=== PATIENT | female | born 1935 | race Caucasian/White ===

== ENCOUNTER 2018-12-25 07:26 | Inpatient (IN) ==
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
[2018-12-25 07:47] LABS: Hemoglobin 13.8 gm/dL (12.5-16.0); Mean Cell Volume 92.5 fl (78-100); Mean Corpuscular Hemoglobin 30.4 pg (27-31); Mean Corpuscular Hgb Conc 32.9 g/dl (32-36); Neutrophil # 1.5 K/mm3 (1.3-6.0); Neutrophil % 53.7 % (42-75.0); Platelet Count 170 K/mm3 (150-450); Red Blood Count 4.54 M/mm3 (4.2-5.4); Red Cell Distribution Width 12.9 % (11.5-14.0); White Blood Count 2.8 K/mm3 (4.0-10.5)
[2018-12-25 08:13] LABS: Albumin * 3.6 gm/dl (3.4-5.0); Anion Gap 13.1 mmol/L (6.8-13.8); BUN/Creatinine Ratio 20.3 (9.0-21.6); Bilirubin, Total 0.3 mg/dL (0.0-1.1); Ca. Corrected For Albumin 9.4 mg/dL (8.4-10.2); Calcium * 9.4 mg/dL (7.9-10.9); Potassium 4.1 mmol/L (3.4-4.6); Total Protein 7.8 gm/dL (6.2-8.2)
[2018-12-25] MEDS ORDERED: MORPHINE SULFATE 4 MG/ML SYRG IV ONE (09:22)
[2018-12-25 09:26] LABS: Urine Bilirubin Negative (NEGATIVE); Urine Ketone 50 mg/dL (NEGATIVE); Urine Nitrite Negative (NEGATIVE); Urine Protein 15 mg/dL (NEGATIVE); Urine Specific Gravity 1.025 SP.GR. (1.005-1.010); Urine Urobilinogen Normal (NORMAL)
[2018-12-25 09:33] LABS: Urine Appearance Clear (CLEAR); Urine Bacteria None Seen; Urine Blood 10 /ul (NEGATIVE); Urine Color Yellow; Urine RBC 0-5 /hpf (0-5); Urine WBC None Seen /hpf (0-5)
[2018-12-25] MEDS ORDERED: MORPHINE SULFATE 4 MG/ML SYRG IV PRN (12:34)
--- NOTE | 2018-12-25 12:44 | HP ---
Chief Complaint - Chief Complaint Date of Service: 12/25/18 Time of Service: 11:05 Chief Complaint: Right hip pain History of Present Illness: 83-year-old female with a past medical history of hypertension, hyperlipidemia, osteoporosis, type 2 diabetes mellitus, cerebrovascular disease, osteoporosis presents status post fall. She was last seen normal around 5 or 6 PM. Her neighbor came to check on her as she usually does at 4:30 in the morning and found her laying on the kitchen floor. The patient did not remember what happened and how she fell. She was brought to the emergency department and found to have a right femoral neck fracture on x-ray. She is being admitted and orthopedics has been consulted. Medical History (Last Reviewed 12/25/18 @ 10:30 by Belén Mayorga RN) Cerebrovascular disease Goiter colloid, toxic, nodular Hyperlipidemia Hypertension Leiomyoma of uterus Migraine Osteoporosis Type II diabetes mellitus Surgical History: Surgical History (Last Reviewed 12/25/18 @ 10:30 by Belén Mayorga RN) H/O repair of rotator cuff Onset Date: Unknown left shoulder History of appendectomy Onset Date: Unknown History of colonoscopy Onset Date: ~06/20/10 History of thyroidectomy Onset Date: Unknown Normal coronary angiogram Onset Date: Unknown Family History: Family History (Last Updated 11/11/18 @ 10:22 by Jeimy Coleman RN) Mother , 92 "old age" No problems noted. Father , 62-unknown No problems noted. Social History: Patient Lives/Resources Home Utilized Preferred Language Persian Do you have any restoration or No cultural preference? Smoking Status Current every day smoker Have you smoked in the past 12 Yes months Smoking packs per day 0.5 Do you dip or chew tobacco No Abuse History No History of abuse Psych History No pertinent hx Alcohol Use none Drug Use none (Last Updated 11/11/18 @ 11:14 by Sruthi Burton DNP) No Social History Section defined Review Of Systems (GEN) - Review of Systems Generalized/Overall Review: Absent: Fever Musculoskeletal: Present: Joint Pain Misc: All systems neg except as marked Immunizations: IMMUNIZATION HX Immunizations Up to Date Yes History of Influenza Vaccine Yes Hx Pneumococcal Vaccination Yes Allergies/Adverse Reactions: Allergies Allergy/AdvReac Type Severity Reaction Status Date / Time Txflgtg-Fpx-Jaf Reductase Allergy Intermediate Verified 12/25/18 07:36 Inhibitor hydrocodone [Hydrocodone] AdvReac Intermediate Verified 12/25/18 07:36 Home Medications: HOME MEDICATIONS Aspirin 81 mg PO DAILY 12/25/18 [Last Taken Unknown] Cholecalciferol (Vitamin D3) [Vitamin D3] 1,000 unit PO DAILY 12/25/18 [Last Taken Unknown] Levothyroxine Sodium [Tirosint] 112 mcg PO DAILY 12/25/18 [Last Taken Unknown] glipiZIDE [Glipizide] 10 mg PO BID 12/25/18 [Last Taken Unknown] metFORMIN HCL [Metformin HCl] 500 mg PO BID 12/25/18 [Last Taken Unknown] traMADol HCL [Tramadol HCl] 50 mg PO QID 12/25/18 [Last Taken Unknown] Exam - Exam Vital Signs: Vital Signs - Last Taken Temp 38 C 12/25/18 10:22 Pulse 110 H 12/25/18 10:59 Resp 18 12/25/18 10:22 BP 121/75 12/25/18 10:22 Pulse Ox 94 12/25/18 10:22 Constitutional: Present: Cooperative, No distress, Lethargic, Elderly ENT Exam: Present: hearing grossly normal Eye Exam: bilateral eye: normal inspection Neck: Present: non-tender. Absent: lymphadenopathy (R), lymphadenopathy (L) Respiratory: Present: lungs clear, normal breath sounds, No wheezing. Absent: crackles, rhonchi Cardiovascular/Chest: Present: normal peripheral pulses, regular rate, rhythm, no edema Peripheral Pulses: dorsalis-pedis (R): 2+, dorsalis-pedis (L): 2+ Abdomen: Present: Normal bowel sounds, soft, nontender Extremity: Present: no pedal edema Skin Exam: Present: normal color, warm/dry Neurologic: Present: other - lethargic. Absent: alert Appearance: Present: appropriate appearance Eye contact: Present: cooperative Diagnostic Studies: Abnormal Lab Results 12/25/18 12/25/18 12/25/18 Range/Units 07:40 07:40 09:17 WBC 2.8 L (4.0-10.5) K/mm3 Immature Gran % (Auto) 1.10 H (0.001-0.429) % Monocytes % 19.1 H (0.0-9) % Lymphocytes # 0.70 L (1.5-3.5) k/mm3 Random Glucose 238 H (70-110) mg/dL Urine Protein 15 H (NEGATIVE) mg/dL Urine Blood 10 H (NEGATIVE) /ul Laboratory Results WBC 2.8 K/mm3 (4.0-10.5) L 12/25/18 07:40 RBC 4.54 M/mm3 (4.2-5.4) 12/25/18 07:40 Hgb 13.8 gm/dL (12.5-16.0) 12/25/18 07:40 Hct 42.0 % (37.0-47.0) 12/25/18 07:40 MCV 92.5 fl (78-100) 12/25/18 07:40 MCH 30.4 pg (27-31) 12/25/18 07:40 MCHC 32.9 g/dl (32-36) 12/25/18 07:40 RDW 12.9 % (11.5-14.0) 12/25/18 07:40 Plt Count 170 K/mm3 (150-450) 12/25/18 07:40 MPV 10.0 fl (8-12.5) 12/25/18 07:40 Immature Gran % (Auto) 1.10 % (0.001-0.429) H 12/25/18 07:40 Immature Gran # (Auto) 0.03 K/mm3 (0.000-0.0310) 12/25/18 07:40 Neutrophils % 53.7 % (42-75.0) 12/25/18 07:40 Lymphocytes % 25.3 % (20-51) 12/25/18 07:40 Monocytes % 19.1 % (0.0-9) H 12/25/18 07:40 Eosinophils % 0.4 % (0.0-3.0) 12/25/18 07:40 Basophils % 0.4 % (0.0-1.0) 12/25/18 07:40 Nucleated RBC % 0.0 k/mm3 (0-1) 12/25/18 07:40 Neutrophils # 1.5 K/mm3 (1.3-6.0) 12/25/18 07:40 Lymphocytes # 0.70 k/mm3 (1.5-3.5) L 12/25/18 07:40 Monocytes # 0.5 k/mm3 (0.0-1.0) 12/25/18 07:40 Eosinophils # 0.0 k/mm3 (0.0-0.7) 12/25/18 07:40 Absolute Basophils 0.0 k/mm3 (0.0-0.1) 12/25/18 07:40 Sodium 134 mmol/L (132-142) 12/25/18 07:40 Plasma Sodium 136 mmol/L (130-142) 12/25/18 07:40 Potassium 4.1 mmol/L (3.4-4.6) 12/25/18 07:40 Chloride 100 mmol/L (97-106) 12/25/18 07:40 Carbon Dioxide 25.0 mmol/L (24-32.6) 12/25/18 07:40 Anion Gap 13.1 mmol/L (6.8-13.8) 12/25/18 07:40 BUN 14 mg/dL (3-23) 12/25/18 07:40 Creatinine 0.69 mg/dL (0.4-1.4) 12/25/18 07:40 Est GFR (Non-Af Amer) 87 mL/min (60-130) D 12/25/18 07:40 BUN/Creatinine Ratio 20.3 (9.0-21.6) 12/25/18 07:40 Random Glucose 238 mg/dL (70-110) H 12/25/18 07:40 Calcium 9.4 mg/dL (7.9-10.9) 12/25/18 07:40 Calcium Adj for Albumin 9.4 mg/dL (8.4-10.2) 12/25/18 07:40 Total Bilirubin 0.3 mg/dL (0.0-1.1) 12/25/18 07:40 AST 23 U/L (0-48) 12/25/18 07:40 ALT 20 U/L (19-67) 12/25/18 07:40 Alkaline Phosphatase 105 U/L (50-170) 12/25/18 07:40 Creatine Kinase 44 U/L (0-259) 12/25/18 07:40 Total Protein 7.8 gm/dL (6.2-8.2) 12/25/18 07:40 Albumin 3.6 gm/dl (3.4-5.0) 12/25/18 07:40 Urine Color Yellow 12/25/18 09:17 Urine Appearance Clear (CLEAR) 12/25/18 09:17 Urine pH 6.0 pH (5.0-7.0) 12/25/18 09:17 Ur Specific [place] 1.025 SP.GR. (1.005-1.010) 12/25/18 09:17 Urine Protein 15 mg/dL (NEGATIVE) H 12/25/18 09:17 Urine Glucose (UA) Negative mg/dL (NEGATIVE) 12/25/18 09:17 Urine Ketones 50 mg/dL (NEGATIVE) 12/25/18 09:17 Urine Blood 10 /ul (NEGATIVE) H 12/25/18 09:17 Urine Nitrate Negative (NEGATIVE) 12/25/18 09:17 Urine Bilirubin Negative mg/dl (NEGATIVE) 12/25/18 09:17 Prot Sulfosalicylic Acd Negative mg/dL (0) 12/25/18 09:17 Urine Urobilinogen Normal EU/dl (NORMAL) 12/25/18 09:17 Ur Leukocyte Esterase Negative /ul (NEGATIVE) 12/25/18 09:17 Urine RBC 0-5 /hpf (0-5) 12/25/18 09:17 Urine WBC None seen /hpf (0-5) 12/25/18 09:17 Ur Epithelial Cells None seen /hpf (0-5) 12/25/18 09:17 Urine Bacteria None seen (NONE) 12/25/18 09:17 Urine Culture Comments No culture indicated 12/25/18 09:17 Assessment/Plan - Narrative Narrative: 83-year-old female with a past medical history of hypertension, hyperlipidemia, osteoporosis, type 2 diabetes mellitus, cerebrovascular disease, osteoporosis presents status post fall. She was brought to the emergency department and found to have a right hip fracture on x-ray. She is being admitted and orthopedics has been consulted. She will go to the operating room tomorrow. - Assessment/Plan (1) Fracture of femoral neck, right, closed Problem: Acute Qualifiers: Encounter type: initial encounter Qualified Code(s): S72.001A - Fracture of unspecified part of neck of right femur, initial encounter for closed fracture (2) Hypertension Problem: Chronic (3) Diabetes Problem: Chronic
[2018-12-25] MEDS: MORPHINE SULFATE 2 MG/ML DISP.SYRIN IV PRN (13:56)
[2018-12-25] MEDS: ACETAMINOPHEN 325 MG TABLET PO PRN (15:27)
--- NOTE | 2018-12-25 17:07 | ANES ---
Anesthesia Pre Procedure Eval Vitals/Labs: Last Vital Signs Temp 38.2 C H 12/25/18 14:43 Pulse 97 12/25/18 16:00 Resp 18 12/25/18 14:43 BP 96/61 12/25/18 14:43 Pulse Ox 89 L 12/25/18 14:43 HOME MEDICATIONS Aspirin 81 mg PO DAILY 12/25/18 [Last Taken Unknown] Cholecalciferol (Vitamin D3) [Vitamin D3] 1,000 unit PO DAILY 12/25/18 [Last Taken Unknown] Levothyroxine Sodium [Tirosint] 112 mcg PO DAILY 12/25/18 [Last Taken Unknown] glipiZIDE [Glipizide] 10 mg PO BID 12/25/18 [Last Taken Unknown] metFORMIN HCL [Metformin HCl] 500 mg PO BID 12/25/18 [Last Taken Unknown] traMADol HCL [Tramadol HCl] 50 mg PO QID 12/25/18 [Last Taken Unknown] Allergies/Adverse Reactions: Allergies Allergy/AdvReac Type Severity Reaction Status Date / Time Vhqekam-Tdg-Cyk Reductase Allergy Intermediate Verified 12/25/18 07:36 Inhibitor hydrocodone [Hydrocodone] AdvReac Intermediate Verified 12/25/18 07:36 - Planned Procedure Planned Procedure: right hip fx Medication List Reviewed:: Yes Allergies Verified: Yes Medical History (Last Reviewed 12/25/18 @ 17:00 by Zackary Anne CRNA) Cerebrovascular disease Goiter colloid, toxic, nodular Hyperlipidemia Hypertension Leiomyoma of uterus Migraine Osteoporosis Type II diabetes mellitus Surgical History (Last Reviewed 12/25/18 @ 17:00 by Zackary Anne CRNA) H/O repair of rotator cuff Onset Date: Unknown left shoulder History of appendectomy Onset Date: Unknown History of colonoscopy Onset Date: ~06/20/10 History of thyroidectomy Onset Date: Unknown Normal coronary angiogram Onset Date: Unknown Family History (Last Updated 11/11/18 @ 10:22 by Jeimy Coleman RN) Mother , 92 "old age" No problems noted. Father , 62-unknown No problems noted. - Family Anesthesia History Family History:: no untoward family reactions to anesthesia, no familial bleeding tendencies, no family history of clotting disorders, no family history of premature - Airway/Neck/Teeth Teeth Condition: none Denture Type: Full upper, Full lower Neck Exam: full range of motion Mallampatti Score: 2 Thyromental (T-M) distance: > 6 cm Mandibulo Hyoid distance: > 3 cm - Respiratory Respiratory Physical: lungs clear, decreased breath sounds Smoking Status: Current every day smoker - one half pack per day Discussed smoking cessation including day of surgery: Yes Sleep Apnea currently treated: No Sleep Apnea by current assessment: No - Cardiovascular Cardiac History: arrhythmia - tachycardia, treated in past, nothing current, TIA Tolerate Activity: Fair Heart Sounds: S1 & S2, Regular - Anesthesia Assessment and Plan ASA Class: PS, III Anesthesia Type Plan: Spinal
[2018-12-25] MEDS ORDERED: NORMAL SALINE 1,000 ML IV PRN (21:23)
[2018-12-26] MEDS: ACETAMINOPHEN 325 MG TABLET PO PRN (02:10)
[2018-12-26 05:49] LABS: Hematocrit 42.7 % (37.0-47.0); Hemoglobin 13.9 gm/dL (12.5-16.0); Mean Corpuscular Hgb Conc 32.6 g/dl (32-36); Mean Platelet Volume 10.2 fl (8-12.5); Neutrophil # 2.2 K/mm3 (1.3-6.0); Neutrophil % 51.5 % (42-75.0); Platelet Count 167 K/mm3 (150-450); Red Blood Count 4.64 M/mm3 (4.2-5.4); White Blood Count 4.3 K/mm3 (4.0-10.5)
[2018-12-26 05:51] LABS: Albumin * 3.2 gm/dl (3.4-5.0); Anion Gap 14.2 mmol/L (6.8-13.8); Bilirubin, Total 0.4 mg/dL (0.0-1.1); Ca. Corrected For Albumin 9.1 mg/dL (8.4-10.2); Calcium * 8.8 mg/dL (7.9-10.9); Carbon Dioxide 24.1 mmol/L (24-32.6); Potassium 3.3 mmol/L (3.4-4.6); Total Protein 7.4 gm/dL (6.2-8.2)
--- NOTE | 2018-12-26 07:46 | CONS ---
[facility] - General Date of Service: 12/26/18 Narrative: Patient reports she has no acute events. She is unsure of how she injured her hip. She states her friend found her, most likely after a fall. Her pain is well controlled. She has been NPO since midnight. Source: patient Exam Limitations: no limitations - History of Present Illness Allergies/Adverse Reactions: Allergies Pskjhop-Kqv-Zgo Reductase Inhibitor Allergy (Intermediate, Verified 12/25/18 07:36) hydrocodone [Hydrocodone] Adverse Reaction (Intermediate, Verified 12/25/18 07:36) makes her dizzy, vomiting and decrease high blood pressure Home Medications: Home Medications Medication Instructions Recorded Last Taken Aspirin 81 mg PO DAILY 12/25/18 Unknown Cholecalciferol (Vitamin D3) 1,000 unit PO DAILY 12/25/18 Unknown [Vitamin D3] Levothyroxine Sodium [Tirosint] 112 mcg PO DAILY 12/25/18 Unknown glipiZIDE [Glipizide] 10 mg PO BID 12/25/18 Unknown metFORMIN HCL [Metformin HCl] 500 mg PO BID 12/25/18 Unknown traMADol HCL [Tramadol HCl] 50 mg PO QID 12/25/18 Unknown Medications - Medications Current Medications: Current Medications Acetaminophen (Tylenol) 650 mg PO Q6H PRN PRN Reason: Mild pain (pain scale 1-3) Stop: 01/24/19 14:44 Last Admin: 12/26/18 02:10 Dose: 650 mg Documented by: Sodium Chloride (Sodium Chloride 0.9%) 1,000 mls @ 75 mls/hr IV .[id number] PRN PRN Reason: HYDRATION Stop: 01/24/19 21:24 Last Admin: 12/26/18 00:03 Dose: 75 mls/hr Documented by: Morphine Sulfate (Morphine Sulfate) 1 mg IV Q4H PRN PRN Reason: Severe Pain (pain scale 7-10) Stop: 01/24/19 12:37 Last Admin: 12/25/18 13:56 Dose: 1 mg Documented by: Physical Examination - Exam Vital Signs: Vital Signs - Last Taken Temp 36.5 C 12/26/18 06:43 Pulse 87 12/26/18 06:43 Resp 24 H 12/26/18 06:43 BP 144/61 12/26/18 06:43 Pulse Ox 91 L 12/26/18 06:43 O2 Oxygen Delivery Method Room Air Constitutional: Present: Alert, Cooperative, No distress Extremity: Present: other - RLE--> mild ttp over right hip, SILT, distal capillary refill brisk, 5/5 PF/DF, no obvious wounds Eye contact: Present: cooperative Thoughts: Present: normal thought pattern - Results and Findings: Lab/Microbiology results last 24 hrs: Abnormal/Pending Laboratory Last 24 HRS 12/26/18 12/26/18 12/25/18 05:17 05:17 09:17 WBC Immature Gran % (Auto) 0.70 H Monocytes % 17.8 H Lymphocytes # 1.30 L Potassium 3.3 L Anion Gap 14.2 H Random Glucose 175 H ALT 18 L Albumin 3.2 L Urine Protein 15 H Urine Blood 10 H 12/25/18 12/25/18 07:40 07:40 WBC 2.8 L Immature Gran % (Auto) 1.10 H Monocytes % 19.1 H Lymphocytes # 0.70 L Potassium Anion Gap Random Glucose 238 H ALT Albumin Urine Protein Urine Blood - Assessments/Findings (1) Fracture of femoral neck, right, closed Problem: Acute Qualifiers: Encounter type: initial encounter Qualified Code(s): S72.001A - Fracture of unspecified part of neck of right femur, initial encounter for closed fracture Plan - Plan Plan: - 83 y/o presented with Right hip femoral neck fracture - Discussed conservative vs. surgical intervention including the risk vs. benefits including but not limited to infections, bleeding, cardiac risk, DVT, implant failure, continued pain, malunion vs. non-union fracture healing. After a detailed discussion she wishes to proceed with surgical intervention. She will stay in the hospital post-operatively for monitoring, pain control, PT/OT. Medicine has seen the patient and states she will proceed to operating room on 12/26/2018.
[2018-12-26] MEDS ORDERED: ceFAZolin SODIUM 1 GM VIAL IV PRN (08:01)
[2018-12-26] MEDS ORDERED: RINGER'S SOLUTION,LACTATED 1,000 ML IV PRN (09:24)
[2018-12-26] MEDS ORDERED: MORPHINE SULFATE 4 MG/ML SYRG IV PRN (09:43)
[2018-12-26] MEDS ORDERED: ONDANSETRON HCL/PF 2 MG/ML VIAL IV PRN (09:43)
[2018-12-26] MEDS ORDERED: MAGNESIUM HYDROXIDE 30 ML UDC PO PRN (09:43)
[2018-12-26] MEDS ORDERED: MAG HYDROX/ALUMINUM HYD/SIMETH 30 ML UDC PO PRN (09:43)
--- NOTE | 2018-12-26 09:57 | ANES ---
Post Anesthesia Discharge - Transfer of Care Transfer of Care handoff given to nurse: Yes - Discharge from PACU Discharge from PACU when meets criteria: Yes - Alert in PACU.
--- NOTE | 2018-12-26 09:57 | OR ---
Operative Report - Dictated Report Narrative: Date: 12/26/2018 Surgeon: Raymon Ley M.D. Hide Puller: Rolando Enrique PA-C provided a set of essential, skilled, educated hands that assisted in positioning, transfer, retraction, manipulation, irrigation, closure of wounds, and placement of dressings all of which could not be provided by the available surgical crew. Preoperative diagnosis: Right nondisplaced femoral neck fracture Postoperative diagnosis: Right nondisplaced femoral neck fracture Operations and procedures: 1. Percutaneous cannulated screw fixation of right nondisplaced femoral neck fracture 2. Intraoperative interpretation of radiographs Anesthesia: Spinal Specimens: None Estimated blood loss: Less than 25 Milliliters Retained implants: [employer] 7.0 mm cannulated, partially threaded screws with associated washers 3 Complications: None Indications for procedure: Sarah is an 83-year-old female community ambulator who lives independently who injured the right leg after a fall from standing height. They were admitted to the hospital after being evaluated in the emergency department. Once the medical provider felt that they were stable for surgical treatment, the risks and benefits alternatives were discussed. The risks of , blood clots, bleeding, infection, nerve/tendon/blood vessel injury, malunion, nonunion, failure of implants, painful implants, arthrosis, and need for additional procedures were discussed. The extremity was marked and consent was obtained on the floor. Procedure: After marking the operative extremity on the floor, the patient was taken to the operating room. A timeout was performed. IV antibiotics consisting of 1 g of Ancef were administered. A spinal anesthetic was induced by anesthesia, and the patient was then placed onto a fracture table with a well-padded perineal post. The non-operative leg was placed in a well-padded well leg gastelum in lithotomy position with an SCD on the leg. The operative leg was placed in a well-padded traction boot. Preliminary images were attained utilizing C-arm in both the AP and lateral views. This confirmed that we had obtained adequate visualization of the fracture and entirety of the proximal femur. Next the hip was then prepped and draped in a standard sterile fashion. Attention was turned to the lateral aspect of the proximal femur. The C-arm was used to identify our starting points for our guide pins. A small approximately 4 cm longitudinal incision was made over the lateral aspect of the femur. We then placed 3 terminally threaded guide pins in an inverted triangle configuration hugging the inner cortex of the femoral neck. C-arm was used to confirm appropriate position and depth of our pins. These were all measured to determine our screw lengths. A cannulated drill bit was then used to sequentially drill over each pin across the nondisplaced fracture side of the femoral neck. Three 7.0 mm partially threaded cannulated screws of appropriate lengths with washers were then advanced over our guide pins providing good compression across the fracture site. C-arm was used to confirm appropriate length of our screws to ensure no penetration into the joint. At this point, we felt we had adequately stabilized the fracture. The wound was thoroughly ir rigated. Final images were obtained. The deep fascia was closed with 0 Vicryl, the subcutaneous tissue with 3-0 Vicryl, and the skin was closed with dustin. Sterile dressings of Xeroform, 4 x 4s, and tegaderm were applied. All sponge, sharp, and instrument counts were correct prior to closing the wounds. The patient was then awoken and transferred to the postanesthesia care unit in stable condition.
--- NOTE | 2018-12-26 10:25 | ANES ---
Post Anesthesia Assessment - Vital Signs Vitals: Last Vital Signs Temp 36.4 C 12/26/18 09:45 Pulse 84 12/26/18 10:10 Resp 19 12/26/18 10:10 BP 83/45 L 12/26/18 10:10 Pulse Ox 93 12/26/18 10:10 Airway Patency: Normal - Mental Status Level Of Consciousness: Awake, Alert, Appropriate - Pain Level Pain Score: 0 - no surgical pain, right shoulder pain. - N/V Assessment Nausea/Vomiting Presence: None Dehydration:: No
[2018-12-26] MEDS: NORMAL SALINE 1,000 ML IV PRN (10:56)
[2018-12-26] MEDS: metFORMIN HCL 500 MG TABLET PO SCH ×2 (10:56→17:23)
[2018-12-26] MEDS: CHOLECALCIFEROL 1,000 UNIT CAPSULE PO SCH (10:56)
[2018-12-26] MEDS: glipiZIDE 10 MG TABLET PO SCH ×2 (10:56→17:23)
[2018-12-26] MEDS: LEVOTHYROXINE SODIUM 112 MCG TABLET PO SCH (10:57)
[2018-12-26] MEDS: oxyCODONE HCL/ACETAMINOPHEN 1 TAB TABLET PO PRN ×3 (13:31→22:11)
[2018-12-26] MEDS: ceFAZolin SODIUM 1 GM in DEXTROSE 5 % IN WATER 50 ML IV SCH ×4 (14:54→22:12)
--- NOTE | 2018-12-26 20:14 | PN ---
Subjective - Date and Time Seen Date: 12/26/18 Time: 11:00 Subjective Narrative: She feels good and complains of right shoulder pain. Rated 8 out of 10. She had a CT scan done per Orth O to rule out fracture. Objective - Review of Systems Generalized/Overall Review: Denies: Fever Respiratory: Denies: Shortness of Breath Cardiac: Denies: Chest Pain Musculoskeletal Complaints: Reports: Joint Pain - Right shoulder and right hip Misc: All systems neg except as marked - Vitals Vitals: Last Vital Signs Temp 36.8 C 12/26/18 10:38 Pulse 87 12/26/18 16:42 Resp 18 12/26/18 16:42 BP 83/63 L 12/26/18 16:42 Pulse Ox 90 L 12/26/18 16:42 - Abnormal Lab Findings Abnormal Lab Findings: Abnormal Lab Results 12/26/18 12/26/18 Range/Units 05:17 05:17 Immature Gran % (Auto) 0.70 H (0.001-0.429) % Monocytes % 17.8 H (0.0-9) % Lymphocytes # 1.30 L (1.5-3.5) k/mm3 Potassium 3.3 L (3.4-4.6) mmol/L Anion Gap 14.2 H (6.8-13.8) mmol/L Random Glucose 175 H (70-110) mg/dL ALT 18 L (19-67) U/L Albumin 3.2 L (3.4-5.0) gm/dl - Exam Constitutional: Present: Alert, Cooperative, Well developed, Well nourished, No distress, Elderly ENT Exam: Present: hearing grossly normal Neck: Present: supple. Absent: lymphadenopathy (R), lymphadenopathy (L) Respiratory: Present: lungs clear, no respiratory distress, No wheezing. Absent: crackles, rhonchi Cardiovascular/Chest: Present: normal peripheral pulses, regular rate, rhythm, no murmur Abdomen: Present: Normal bowel sounds, soft, nontender Extremity: Present: no pedal edema Skin Exam: Present: normal color, warm/dry Appearance: Present: appropriate appearance Eye contact: Present: cooperative Thoughts: Present: normal mood /affect Cauti Physician Documentation - Urinary Catheter Management Urethral (Garcia) Date of Insertion: 12/25/18 Time of Insertion: 09:20 Assessment/Plan Plan Narrative: 83-year-old female with a past medical history of hypertension, hyperlipidemia, osteoporosis, type 2 diabetes mellitus, cerebrovascular disease, osteoporosis presents status post fall. She was last seen normal around 5 or 6 PM. Her neighbor came to check on her as she usually does at 4:30 in the morning and found her laying on the kitchen floor. The patient did not remember what happened and how she fell. She was brought to the emergency department and found to have a right femoral neck fracture on x-ray. She is being admitted and orthopedics has been consulted. - Problems/Diagnosis (1) Fracture of femoral neck, right, closed Problem: Acute Qualifiers: Encounter type: initial encounter Qualified Code(s): S72.001A - Fracture of unspecified part of neck of right femur, initial encounter for closed fracture Narrative: Status post percutaneous screw fixation today. Continue pain management and physical therapy. She will need skilled rehab on discharge. (2) Hypertension Problem: Chronic Qualifiers: Hypertension type: essential hypertension Qualified Code(s): I10 - Essential (primary) hypertension (3) Diabetes Problem: Chronic
[2018-12-26] MEDS: SENNOSIDES/DOCUSATE SODIUM 1 TAB TABLET PO SCH (22:10)
[2018-12-26] MEDS: NICOTINE 21 MG PATC TD SCH (22:11)
[2018-12-27 05:48] LABS: Hematocrit 37.5 % (37.0-47.0); Hemoglobin 12.5 gm/dL (12.5-16.0); Mean Cell Volume 90.6 fl (78-100); Mean Corpuscular Hemoglobin 30.2 pg (27-31); Mean Corpuscular Hgb Conc 33.3 g/dl (32-36); Mean Platelet Volume 10.3 fl (8-12.5); Platelet Count 150 K/mm3 (150-450); Red Blood Count 4.14 M/mm3 (4.2-5.4); Red Cell Distribution Width 12.8 % (11.5-14.0); White Blood Count 4.7 K/mm3 (4.0-10.5)
[2018-12-27 05:49] LABS: Anion Gap 14.4 mmol/L (6.8-13.8); BUN/Creatinine Ratio 12.9 (9.0-21.6); Calcium * 8.6 mg/dL (7.9-10.9); Estimated Creat Clear 63.9; Potassium 3.4 mmol/L (3.4-4.6)
[2018-12-27] MEDS: oxyCODONE HCL/ACETAMINOPHEN 1 TAB TABLET PO PRN ×4 (05:56→20:36)
[2018-12-27] MEDS: ceFAZolin SODIUM 1 GM in DEXTROSE 5 % IN WATER 50 ML IV SCH ×2 (07:45)
[2018-12-27] MEDS: LEVOTHYROXINE SODIUM 112 MCG TABLET PO SCH (08:01)
[2018-12-27] MEDS: MORPHINE SULFATE 2 MG/ML DISP.SYRIN IV PRN (08:27)
[2018-12-27] MEDS: ENOXAPARIN SODIUM 40 MG/0.4 ML SYRG SC SCH (08:28)
[2018-12-27] MEDS: metFORMIN HCL 500 MG TABLET PO SCH ×2 (08:29→16:40)
[2018-12-27] MEDS: CHOLECALCIFEROL 1,000 UNIT CAPSULE PO SCH (08:29)
[2018-12-27] MEDS: glipiZIDE 10 MG TABLET PO SCH ×2 (08:29→16:39)
--- NOTE | 2018-12-27 11:11 | PN ---
Subjective - Date and Time Seen Date: 12/27/18 Time: 07:45 Subjective Narrative: Patient reports no acute events. She notes she has not been up out of bed yet. She reports no acute symptoms currently. She notes her pain is well controlled she rates it at a 23/10. Objective - Vitals Vitals: Last Vital Signs Temp 36.4 C 12/27/18 10:00 Pulse 71 12/27/18 10:59 Resp 20 12/27/18 10:00 BP 133/59 12/27/18 06:00 Pulse Ox 96 12/27/18 10:00 - Abnormal Lab Findings Abnormal Lab Findings: Abnormal Lab Results 12/27/18 12/27/18 Range/Units 05:10 05:10 RBC 4.14 L (4.2-5.4) M/mm3 Sodium 131 L (132-142) mmol/L Carbon Dioxide 22.0 L (24-32.6) mmol/L Anion Gap 14.4 H (6.8-13.8) mmol/L Random Glucose 210 H (70-110) mg/dL - Exam Constitutional: Present: Alert, Cooperative, No distress Extremity: Present: other - RLE--> bandages clean/dry/intact, sensation intact light touch, distal capillary refill brisk, diffuse mild tenderness around her right hip, 5/5 plantar flexion dorsiflexion of her right ankle Eye contact: Present: cooperative Thoughts: Present: normal thought pattern Cauti Physician Documentation - Urinary Catheter Management Urethral (Garcia) Date of Insertion: 12/25/18 Time of Insertion: 09:20 Assessment/Plan Plan Narrative: - 83 y/o female postop day 1 status post right hip pinning of a nondisplaced femoral neck fracture -Weightbearing as tolerated with assistance as needed -P.o. diet as tolerated -PT/OT progress as tolerated -P.o. pain medication as needed -Maintain surgical dressings in place -Chronic medical conditions per medicine team -VTE prophylaxis: Lovenox, SCDs in bed, MIRIAM cruz -Disposition: Once all PT goals are met, pain is well controlled, p.o. diuretic tolerated, patient is stable per medicine discharge to either long term facility versus home for further physical therapy and gait training - Problems/Diagnosis (1) Fracture of femoral neck, right, closed Problem: Acute Qualifiers: Encounter type: initial encounter Qualified Code(s): S72.001A - Fracture of unspecified part of neck of right femur, initial encounter for closed fracture
--- NOTE | 2018-12-27 12:39 | PN ---
Subjective - Date and Time Seen Date: 12/27/18 Time: 10:00 Subjective Narrative: She states she feels well but continues to complain of right shoulder and right hip pain. Right shoulder pain is worse than the hip. Right shoulder hurts more with movement. Objective - Review of Systems Generalized/Overall Review: Denies: Fever Respiratory: Denies: Shortness of Breath Cardiac: Denies: Chest Pain Musculoskeletal Complaints: Reports: Joint Pain - Right shoulder and right hip Misc: All systems neg except as marked - Vitals Vitals: Last Vital Signs Temp 36.4 C 12/27/18 10:00 Pulse 71 12/27/18 10:59 Resp 20 12/27/18 10:00 BP 91/52 12/27/18 10:00 Pulse Ox 96 12/27/18 10:00 - Abnormal Lab Findings Abnormal Lab Findings: Abnormal Lab Results 12/27/18 12/27/18 Range/Units 05:10 05:10 RBC 4.14 L (4.2-5.4) M/mm3 Sodium 131 L (132-142) mmol/L Carbon Dioxide 22.0 L (24-32.6) mmol/L Anion Gap 14.4 H (6.8-13.8) mmol/L Random Glucose 210 H (70-110) mg/dL - Exam Constitutional: Present: Alert, Cooperative, Well developed, Well nourished, No distress ENT Exam: Present: hearing grossly normal, dry mucous membranes Neck: Present: supple. Absent: lymphadenopathy (R), lymphadenopathy (L) Respiratory: Present: lungs clear, normal breath sounds, no respiratory distress, no accessory muscle use, No wheezing. Absent: crackles, rhonchi Cardiovascular/Chest: Present: normal peripheral pulses, regular rate, rhythm, no edema, no murmur Abdomen: Present: Normal bowel sounds, soft, nontender Extremity: Present: no pedal edema Skin Exam: Present: normal color, warm/dry Neurologic: Present: normal mood/affect Appearance: Present: appropriate appearance Eye contact: Present: cooperative, good eye contact Thoughts: Present: normal thought pattern, normal mood /affect Cauti Physician Documentation - Urinary Catheter Management Urethral (Garcia) Date of Insertion: 12/25/18 Time of Insertion: 09:20 Date of Removal: 12/27/18 Time of Removal: 06:00 Assessment/Plan Plan Narrative: 83-year-old female with a past medical history of hypertension, hyperlipidemia, osteoporosis, type 2 diabetes mellitus, cerebrovascular disease, osteoporosis presents status post fall. She was brought to the emergency department and found to have a right femoral neck fracture on x-ray. She underwent a operative percutaneous screw fixation on December 26, [address] Ley. She will need skilled rehab on discharge because she lives alone. - Problems/Diagnosis (1) Fracture of femoral neck, right, closed Problem: Acute Qualifiers: Encounter type: initial encounter Qualified Code(s): S72.001A - Fracture of unspecified part of neck of right femur, initial encounter for closed fracture (2) Hypertension Problem: Chronic Qualifiers: Hypertension type: essential hypertension Qualified Code(s): I10 - Essential (primary) hypertension (3) Diabetes Problem: Chronic (4) Right shoulder pain Problem: Acute Qualifiers: Chronicity: acute Qualified Code(s): M25.511 - Pain in right shoulder Narrative: CT scan of the right shoulder showed no signs of fracture, 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 Continue with pain management and we can place a sling on the arm.
[2018-12-27] MEDS: NICOTINE 21 MG PATC TD SCH (14:12)
[2018-12-27] MEDS: NORMAL SALINE 1,000 ML IV PRN (14:30)
[2018-12-27] MEDS ORDERED: NORMAL SALINE 1,000 ML IV ONE (19:20)
[2018-12-27] MEDS: SENNOSIDES/DOCUSATE SODIUM 1 TAB TABLET PO SCH (20:40)
[2018-12-28] MEDS: oxyCODONE HCL/ACETAMINOPHEN 1 TAB TABLET PO PRN ×2 (01:52→06:02)
[2018-12-28 05:54] LABS: Hematocrit 34.7 % (37.0-47.0); Hemoglobin 11.4 gm/dL (12.5-16.0); Mean Cell Volume 91.1 fl (78-100); Mean Corpuscular Hemoglobin 29.9 pg (27-31); Mean Corpuscular Hgb Conc 32.9 g/dl (32-36); Mean Platelet Volume 10.2 fl (8-12.5); Neutrophil # 3.7 K/mm3 (1.3-6.0); Neutrophil % 64.4 % (42-75.0); Platelet Count 145 K/mm3 (150-450); Red Blood Count 3.81 M/mm3 (4.2-5.4); White Blood Count 5.8 K/mm3 (4.0-10.5)
[2018-12-28 06:20] LABS: Albumin * 2.3 gm/dl (3.4-5.0); Anion Gap 13.1 mmol/L (6.8-13.8); BUN/Creatinine Ratio 15.3 (9.0-21.6); Bilirubin, Total 0.3 mg/dL (0.0-1.1); Potassium 3.1 mmol/L (3.4-4.6); Total Protein 6.5 gm/dL (6.2-8.2)
[2018-12-28] MEDS: LEVOTHYROXINE SODIUM 112 MCG TABLET PO SCH (06:58)
[2018-12-28] MEDS: ENOXAPARIN SODIUM 40 MG/0.4 ML SYRG SC SCH (09:09)
[2018-12-28] MEDS: CHOLECALCIFEROL 1,000 UNIT CAPSULE PO SCH (09:09)
[2018-12-28] MEDS: glipiZIDE 10 MG TABLET PO SCH ×2 (09:09→16:51)
[2018-12-28] MEDS: metFORMIN HCL 500 MG TABLET PO SCH ×2 (09:09→16:51)
[2018-12-28] MEDS ORDERED: NORMAL SALINE 500 ML IV ONE (09:17)
[2018-12-28] MEDS: ACETAMINOPHEN 325 MG TABLET PO PRN ×2 (11:22→20:40)
[2018-12-28] MEDS ORDERED: POTASSIUM CHLORIDE 20 MEQ TABLET.SA PO ONE (12:26)
--- NOTE | 2018-12-28 12:43 | PN ---
Subjective - Date and Time Seen Date: 12/28/18 Time: 12:36 Subjective Narrative: I have mild hip pain. Objective Objective Narrative: 83-year-old female on postop day 2 after a ORIF of a right femoral neck fracture was evaluated at bedside and was found to be afebrile and in no acute distress. Patient is currently receiving physical therapy per ortho's recommendations, no adverse events have been reported. Patient reports mild pain and for that she was administered acetaminophen as well as ice pack applied to the area. Patient has been hypotensive since last night so she is being treated with IV hydration, after the last bolus blood pressure has improved we will continue to monitor closely. Patient is programmed to be discharged to rehab facility next week, until then we will continue the current management. - Review of Systems Generalized/Overall Review: Reports: No Symptoms Reported EENTM: Reports: No Symptoms Reported Respiratory: Reports: No Symptoms Reported Cardiac: Reports: No Symptoms Reported Abdominal: Reports: No Symptoms Reported Genitourinary Symptoms: Reports: No Symptoms Reported Musculoskeletal Complaints: Reports: Joint Pain, Joint Swelling Neurological: Reports: No Symptoms Reported Skin: Reports: No Symptoms Reported Endocrine: Reports: No Symptoms Reported - Vitals Vitals: Last Vital Signs Temp 36.8 C 12/28/18 09:00 Pulse 89 12/28/18 09:00 Resp 20 12/28/18 09:00 BP 87/53 L 12/28/18 11:31 Pulse Ox 93 12/28/18 09:00 - Abnormal Lab Findings Abnormal Lab Findings: Abnormal Lab Results 12/28/18 12/28/18 Range/Units 05:40 05:40 RBC 3.81 L (4.2-5.4) M/mm3 Hgb 11.4 L (12.5-16.0) gm/dL Hct 34.7 L (37.0-47.0) % Plt Count 145 L (150-450) K/mm3 Immature Gran % (Auto) 0.50 H (0.001-0.429) % Monocytes % 13.0 H (0.0-9) % Lymphocytes # 1.26 L (1.5-3.5) k/mm3 Potassium 3.1 L (3.4-4.6) mmol/L Random Glucose 179 H (70-110) mg/dL ALT 14 L (19-67) U/L Albumin 2.3 L (3.4-5.0) gm/dl - Exam Constitutional: Present: Alert, Oriented x3, Cooperative, Well developed, Well nourished, No distress, Elderly ENT Exam: Present: normal ENT inspection, hearing grossly normal, pharynx normal, TMs normal Neck: Present: non-tender, full range of motion, supple, normal inspection, trachea midline Breasts: Present: Exam deferred Respiratory: Present: chest non-tender, lungs clear, normal breath sounds, no respiratory distress, no accessory muscle use Cardiovascular/Chest: Present: normal peripheral pulses, regular rate, rhythm, no chest tenderness, no edema, no gallop, no JVD, no murmur Abdomen: Present: Normal bowel sounds, soft, nontender, nondistended, no rebound tenderness, no hepatospenomegaly, no masses /Rectal: Present: Exam deferred Extremity: Present: no pedal edema, no calf tenderness, normal capillary refill, leg pain, other - Right hip covered by dry clean bandage. Skin Exam: Present: normal color, warm/dry, no cyanosis Lymphatic: Present: no adenopathy Neurologic: Present: document management consultant II-XII nml as tested, normal cerebellar test, no motor/sensory deficits, alert, normal mood/affect, oriented x 3 Appearance: Present: appropriate appearance, appropriate insight, neat, no memory impairment Eye contact: Present: cooperative, good eye contact, normal speech Thoughts: Present: normal thought pattern Cauti Physician Documentation - Urinary Catheter Management Urethral (Garcia) Urethral Indwelling: No Date of Insertion: 12/25/18 Time of Insertion: 09:20 Date of Removal: 12/27/18 Time of Removal: 06:00 Assessment/Plan Plan Narrative: We will continue current management with physical therapy, IV hydration to address hypotension. Patient was administered potassium chloride p.o. for hypokalemia, follow-up lab has been ordered for tomorrow morning. In the meantime will address pain with p.o. analgesics as necessary. - Problems/Diagnosis (1) Hip pain Problem: Acute Qualifiers: Laterality: right Qualified Code(s): M25.551 - Pain in right hip (2) Hip fracture Problem: Acute (3) Fracture of femoral neck, right, closed Problem: Acute Qualifiers: Encounter type: initial encounter Qualified Code(s): S72.001A - Fracture of unspecified part of neck of right femur, initial encounter for closed fracture (4) Diabetes Problem: Chronic (5) Hypotension Problem: Acute
[2018-12-28] MEDS: NICOTINE 21 MG PATC TD SCH (13:28)
[2018-12-28] MEDS: NORMAL SALINE 1,000 ML IV PRN (19:15)
[2018-12-28] MEDS: SENNOSIDES/DOCUSATE SODIUM 1 TAB TABLET PO SCH (20:40)
[2018-12-28] MEDS ORDERED: guaiFENesin 100 MG/5 ML BTL PO PRN (21:26)
[2018-12-29] MEDS ORDERED: METOPROLOL TARTRATE 1 MG/ML AMPUL IV ONE ×2 (00:09→07:59)
[2018-12-29] MEDS ORDERED: NOREPINEPHRINE BITARTRATE 4 MG in DEXTROSE 5 % IN WATER 496 ML IV PRN ×2 (01:28)
--- NOTE | 2018-12-29 02:12 | PN ---
Progess Note - Interim Date: 12/29/18 Time: 02:11 Narrative: 12/29/18 02:02 83-year-old female was evaluated at the bedside and was found to be acutely ill, diaphoretic, and hypotensive. I was notified by nursing staff that patient was hypotensive and presenting supraventricular tachycardia confirmed by EKG. patient saturation also started dropping and went from her 94 to lower the 90, respiratory therapist was called and patient was placed on O2 by nasal cannula. Given this clinical picture CT angio, d-dimer, as well as cardiac troponins were ordered to rule out pulmonary embolism and myocardial infarction. However CT angio was negative for PE but d-dimer was found to be positive, cardiac troponin pending. For now patient maintains stable vitals oxygen saturation has improved, she denies chest pain or shortness of breath. Patient's heart rate also has improved and SVT has resolved for now confirmed by EKG. However as a precaution patient will be transferred to the special care unit for close monitoring.
[2018-12-29] MEDS: ACETAMINOPHEN 325 MG TABLET PO PRN ×2 (04:07→10:54)
[2018-12-29] MEDS: LEVOTHYROXINE SODIUM 112 MCG TABLET PO SCH (07:34)
[2018-12-29] MEDS: NORMAL SALINE 1,000 ML IV PRN ×2 (07:39→20:47)
[2018-12-29 08:07] LABS: Albumin * 2.1 gm/dl (3.4-5.0); Anion Gap 13.7 mmol/L (6.8-13.8); BUN/Creatinine Ratio 11.1 (9.0-21.6); Bilirubin, Total 0.4 mg/dL (0.0-1.1); Ca. Corrected For Albumin 10.4 mg/dL (8.4-10.2); Calcium * 9.2 mg/dL (7.9-10.9); Carbon Dioxide 25.2 mmol/L (24-32.6); Potassium 2.9 mmol/L (3.4-4.6); Total Protein 6.4 gm/dL (6.2-8.2); Troponin I 0.039 ng/mL (0.00-0.10)
[2018-12-29] MEDS: CHOLECALCIFEROL 1,000 UNIT CAPSULE PO SCH (08:50)
[2018-12-29] MEDS: glipiZIDE 10 MG TABLET PO SCH ×2 (08:50→17:31)
[2018-12-29] MEDS: metFORMIN HCL 500 MG TABLET PO SCH ×2 (08:51→17:31)
[2018-12-29] MEDS: ENOXAPARIN SODIUM 40 MG/0.4 ML SYRG SC SCH (08:51)
[2018-12-29] MEDS: POTASSIUM CHLORIDE IN WATER 100 ML IV SCH ×4 (09:30→12:32)
--- NOTE | 2018-12-29 09:52 | PN ---
Subjective - Date and Time Seen Date: 12/29/18 Time: 09:19 Subjective Narrative: I have right hip pain. Objective Objective Narrative: 83-year-old female on postop day 3 after a ORIF of a right femoral neck fracture was evaluated at bedside and was found to be afebrile and in no acute distress. However patient was transferred to the special care unit overnight due to deterioration of vital signs that consisted of persistent hypotension accompanied by supraventricular tachycardia with a heart rate of 150+. Patient was evaluated for pulmonary embolism but CT angios was negative. Patient eventually improved and her vital signs stabilized. This morning we had another spike in her heart rate after patient was transferred from bed to chair, so IV metoprolol was administered and she responded well with her heart rate ranging between 90 and 100. She denies shortness of breath or any other symptoms at the moment. We will continue to monitor herself closely. - Review of Systems Generalized/Overall Review: Reports: No Symptoms Reported EENTM: Reports: No Symptoms Reported Respiratory: Reports: No Symptoms Reported Cardiac: Reports: No Symptoms Reported Abdominal: Reports: No Symptoms Reported Genitourinary Symptoms: Reports: No Symptoms Reported Musculoskeletal Complaints: Reports: Joint Pain, Joint Swelling Neurological: Reports: No Symptoms Reported Skin: Reports: No Symptoms Reported Endocrine: Reports: No Symptoms Reported - Vitals Vitals: Last Vital Signs Temp 36.9 C 12/29/18 03:44 Pulse 83 12/29/18 08:26 Resp 18 12/29/18 08:26 BP 112/73 12/29/18 08:26 Pulse Ox 95 12/29/18 08:26 - Abnormal Lab Findings Abnormal Lab Findings: Abnormal Lab Results 12/29/18 12/29/18 Range/Units 00:55 07:31 D-Dimer 2.29 H (0.19-0.49) ug/mL Potassium 2.9 L (3.4-4.6) mmol/L Random Glucose 167 H (70-110) mg/dL Calcium Adj for Albumin 10.4 H (8.4-10.2) mg/dL ALT 17 L (19-67) U/L Albumin 2.1 L (3.4-5.0) gm/dl - Exam Constitutional: Present: Alert, Oriented x3, Cooperative, Well developed, Well nourished, No distress, Elderly ENT Exam: Present: normal ENT inspection, hearing grossly normal, pharynx normal, TMs normal Neck: Present: non-tender, full range of motion, supple, normal inspection, trachea midline Breasts: Present: Exam deferred Respiratory: Present: chest non-tender Cardiovascular/Chest: Present: regular rate, rhythm, no chest tenderness, no edema, no gallop, no JVD, no murmur, extra beats Abdomen: Present: Normal bowel sounds, soft, nontender, nondistended, no rebound tenderness, no hepatospenomegaly, no masses /Rectal: Present: Exam deferred Extremity: Present: no pedal edema, no calf tenderness, leg pain, other - Right right hip covered by clean dry bandage no signs of infection or edema. Skin Exam: Present: normal color, warm/dry, no cyanosis Lymphatic: Present: no adenopathy Neurologic: Present: drink waiter II-XII nml as tested, no motor/sensory deficits, alert, normal mood/affect, oriented x 3 Appearance: Present: appropriate appearance, appropriate insight, neat, no memory impairment Eye contact: Present: cooperative, good eye contact, normal speech Thoughts: Present: normal thought pattern, no apparent hallucination Cauti Physician Documentation - Urinary Catheter Management Urethral (Garcia) Urethral Indwelling: No Date of Insertion: 12/29/18 Time of Insertion: 02:30 Date of Removal: 12/27/18 Time of Removal: 06:00 Assessment/Plan Plan Narrative: Patient was evaluated at bedside and was found to be maintaining stable vitals, she denies any shortness of breath, chest pain, or dizziness. She is to continue with physical therapy but with close monitoring of vitals during sessions. Patient's niece informed us this morning that the patient has a history of cardiac arrhythmia and was previously seeing a administrative support clerk who placed her on a medication however she does not recall what medication it was or what type of arrhythmia the patient was being treated for. The patient has not seen the administrative support clerk in a long time. This morning she was administered metoprolol IV for sustain SVT with heart rate of 155, but after administration of the medication tachycardia resolved. We will transfer patient to [facility] floor and continue to monitor her closely. - Problems/Diagnosis (1) Hip pain Problem: Acute Qualifiers: Laterality: right Qualified Code(s): M25.551 - Pain in right hip (2) Hip fracture Problem: Acute (3) Fracture of femoral neck, right, closed Problem: Acute Qualifiers: Encounter type: initial encounter Qualified Code(s): S72.001A - Fracture of unspecified part of neck of right femur, initial encounter for closed fracture (4) Diabetes Problem: Chronic (5) Hypotension Problem: Acute (6) Supraventricular tachycardia by ECG Problem: Acute
--- NOTE | 2018-12-29 10:40 | PN ---
Subjective - Date and Time Seen Date: 12/29/18 Time: 10:34 Subjective Narrative: Patient is up in chair, comfortable. She states she had blood pressure problems overnight, but has no acute symptoms currently. She states her shoulder is more painful than her hip currently. She states her hip hurts worse with movement better with rest. Objective - Vitals Vitals: Last Vital Signs Temp 36.2 C 12/29/18 09:50 Pulse 74 12/29/18 09:50 Resp 16 12/29/18 09:50 BP 95/44 12/29/18 09:50 Pulse Ox 98 12/29/18 09:50 - Abnormal Lab Findings Abnormal Lab Findings: Abnormal Lab Results 12/29/18 12/29/18 Range/Units 00:55 07:31 D-Dimer 2.29 H (0.19-0.49) ug/mL Potassium 2.9 L (3.4-4.6) mmol/L Random Glucose 167 H (70-110) mg/dL Calcium Adj for Albumin 10.4 H (8.4-10.2) mg/dL ALT 17 L (19-67) U/L Albumin 2.1 L (3.4-5.0) gm/dl - Exam Constitutional: Present: Alert, Cooperative, No distress Extremity: Present: other - RLE--> bandages clean/dry/intact, SILT, 5/5 PF/DF of ankle, diffuse mild ttp around right hip, distal capillary refill brisk Eye contact: Present: cooperative Thoughts: Present: normal thought pattern Cauti Physician Documentation - Urinary Catheter Management Urethral (Garcia) Urethral Indwelling: No Date of Insertion: 12/29/18 Time of Insertion: 02:30 Date of Removal: 12/27/18 Time of Removal: 06:00 Assessment/Plan Plan Narrative: - 83 y/o female postop day #3 status post right hip pinning of a non-displaced femoral neck fracture -Weightbearing as tolerated with assistance as needed -P.o. diet as tolerated -PT/OT progress as tolerated -P.o. pain medication as needed -Maintain surgical dressings in place -Chronic medical conditions per medicine team -VTE prophylaxis: Lovenox, SCDs in bed, MIRIAM hose -Right shoulder pain, orthopedic will preform subacromial injection prior to discharge for pain relief -Disposition: meet PT goals, [facility], f/u in orthopedic outpatient clinic at 2 weeks post-op - Problems/Diagnosis (1) Fracture of femoral neck, right, closed Problem: Acute Qualifiers: Encounter type: initial encounter Qualified Code(s): S72.001A - Fracture of unspecified part of neck of right femur, initial encounter for closed fracture
[2018-12-29] MEDS: NICOTINE 21 MG PATC TD SCH (13:12)
[2018-12-29] MEDS: SENNOSIDES/DOCUSATE SODIUM 1 TAB TABLET PO SCH (20:41)
[2018-12-29] MEDS: MORPHINE SULFATE 2 MG/ML DISP.SYRIN IV PRN (20:42)
[2018-12-30] MEDS: ACETAMINOPHEN 325 MG TABLET PO PRN ×2 (02:29→15:30)
[2018-12-30 06:05] LABS: Hematocrit 33.8 % (37.0-47.0); Hemoglobin 11.1 gm/dL (12.5-16.0); Mean Cell Volume 90.9 fl (78-100); Mean Corpuscular Hemoglobin 29.8 pg (27-31); Mean Corpuscular Hgb Conc 32.8 g/dl (32-36); Mean Platelet Volume 10.5 fl (8-12.5); Neutrophil # 4.8 K/mm3 (1.3-6.0); Platelet Count 238 K/mm3 (150-450); Red Blood Count 3.72 M/mm3 (4.2-5.4); Red Cell Distribution Width 13.2 % (11.5-14.0); White Blood Count 7.4 K/mm3 (4.0-10.5)
[2018-12-30 06:30] LABS: Albumin * 2.1 gm/dl (3.4-5.0); Anion Gap 15.7 mmol/L (6.8-13.8); BUN/Creatinine Ratio 11.5 (9.0-21.6); Bilirubin, Total 0.6 mg/dL (0.0-1.1); Ca. Corrected For Albumin 10.2 mg/dL (8.4-10.2); Potassium 2.7 mmol/L (3.4-4.6); Total Protein 6.6 gm/dL (6.2-8.2)
[2018-12-30] MEDS: LEVOTHYROXINE SODIUM 112 MCG TABLET PO SCH (06:50)
[2018-12-30] MEDS ORDERED: METOPROLOL SUCCINATE 25 MG TABLET.SA PO ONE (08:18)
[2018-12-30] MEDS ORDERED: POTASSIUM CHLORIDE 20 MEQ TABLET.SA PO ONE (08:18)
[2018-12-30] MEDS ORDERED: BUPIVACAINE HCL 50 ML VIAL IJ ONE (08:30)
[2018-12-30] MEDS ORDERED: TRIAMCINOLONE ACETONIDE 40 MG/ML VIAL IJ ONE (08:30)
[2018-12-30] MEDS: CHOLECALCIFEROL 1,000 UNIT CAPSULE PO SCH (08:47)
[2018-12-30] MEDS: ENOXAPARIN SODIUM 40 MG/0.4 ML SYRG SC SCH (08:47)
[2018-12-30] MEDS: glipiZIDE 10 MG TABLET PO SCH ×2 (08:47→17:22)
[2018-12-30] MEDS: POTASSIUM CHLORIDE IN WATER 100 ML IV SCH ×4 (08:56→13:04)
[2018-12-30] MEDS ORDERED: MORPHINE SULFATE 2 MG/ML DISP.SYRIN IV PRN (09:45)
--- NOTE | 2018-12-30 11:15 | PN ---
Subjective - Date and Time Seen Date: 12/30/18 Time: 08:05 Subjective Narrative: Patient was sitting comfortably in chair. Patient notes no acute events overnight. She states she is still having moderate pain of her shoulder, mild pain of her hip. She notes both are better with rest. She notes worse pain with motion. She notes she has been up and walked minimally with physical therapy around her room. Objective - Vitals Vitals: Last Vital Signs Temp 36.5 C 12/30/18 10:00 Pulse 118 H 12/30/18 10:00 Resp 20 12/30/18 10:00 BP 119/77 12/30/18 10:00 Pulse Ox 94 12/30/18 10:00 - Abnormal Lab Findings Abnormal Lab Findings: Abnormal Lab Results 12/30/18 12/30/18 Range/Units 05:45 05:45 RBC 3.72 L (4.2-5.4) M/mm3 Hgb 11.1 L (12.5-16.0) gm/dL Hct 33.8 L (37.0-47.0) % Immature Gran % (Auto) 1.10 H (0.001-0.429) % Immature Gran # (Auto) 0.08 H (0.000-0.0310) K/mm3 Monocytes % 12.8 H (0.0-9) % Potassium 2.7 L (3.4-4.6) mmol/L Carbon Dioxide 23.0 L (24-32.6) mmol/L Anion Gap 15.7 H (6.8-13.8) mmol/L Random Glucose 162 H (70-110) mg/dL Albumin 2.1 L (3.4-5.0) gm/dl - Exam Constitutional: Present: Alert, Cooperative, No distress Extremity: Present: other - RLE--> bandages clean, dry, intact, sensation intact light touch, plantar flexion/dorsiflexion 5/5 of her right ankle, mild diffuse tenderness about her right hip RUE--> diffuse tenderness about her right shoulder, passive range of motion to 90 degrees of flexion and abduction with significant pain, sensation intact light touch, [employer] strength 5/5, no sign of obvious wounds or ecchymosis Eye contact: Present: cooperative Cauti Physician Documentation - Urinary Catheter Management Urethral (Garcia) Urethral Indwelling: No Date of Insertion: 12/29/18 Time of Insertion: 02:30 Date of Removal: 12/29/18 Time of Removal: 17:37 Assessment/Plan Plan Narrative: - 83 y/o female postop day #4 status post right hip pinning of a non-displaced femoral neck fracture -Weightbearing as tolerated with assistance as needed -P.o. diet as tolerated -PT/OT progress as tolerated -P.o. pain medication as needed -Maintain surgical dressings in place -Chronic medical conditions per medicine team -VTE prophylaxis: Lovenox, SCDs in bed, MIRIAM hose -Right shoulder pain-CT revealed no acute fracture, discussed with patient treatment with a subacromial injection. Patient wishes to proceed. Informed consent was obtained, timeout was performed, patient was given a right shoulder subacromial injection without complication. Patient's skin was prepped, of the chloride spray was used, injection was given posteriorly to the subacromial space of her right shoulder, hemostasis was obtained, bandage was applied. Will follow-up with this treatment for pain at her postoperative follow-up for her hip fracture. She tolerated procedure well. -Disposition: once Potassium treated per medicine recommendation, met PT goals, plan to discharge to snf facility for further PT, f/u in orthopedic outpatient clinic at 2 weeks post-op - Problems/Diagnosis (1) Fracture of femoral neck, right, closed Problem: Acute Qualifiers: Encounter type: initial encounter Qualified Code(s): S72.001A - Fracture of unspecified part of neck of right femur, initial encounter for closed fracture
--- NOTE | 2018-12-30 11:22 | PN ---
Yanira Note - Interim Date: 12/30/18 Time: 11: Narrative: 12/30/18 11:19 Discharge recommendations as follows: - 83 y/o female postop day #4 status post right hip pinning of a non-displaced femoral neck fracture -Weightbearing as tolerated with assistance as needed -P.o. diet as tolerated -PT/OT progress as tolerated -P.o. pain medication as needed -Postoperative bandages to be changed every 3 days or as needed with dry gauze and tape, bandages need to be kept clean and dry -Chronic medical conditions per medicine team -VTE prophylaxis: Lovenox until 2 weeks postop followed by 325 mg aspirin daily for 4 to 6 weeks, MIRIAM cruz -Right shoulder pain, sling for comfort, will monitor follow-up -Follow-up at 2 weeks postoperatively in orthopedic outpatient clinic with Dr. Ley
[2018-12-30] MEDS: NICOTINE 21 MG PATC TD SCH (13:04)
--- NOTE | 2018-12-30 13:57 | PN ---
Subjective - Date and Time Seen Date: 12/30/18 Time: 09:00 Objective - Review of Systems Generalized/Overall Review: Denies: Chills, Fever Respiratory: Denies: Shortness of Breath Cardiac: Reports: Palpitations. Denies: Chest Pain Abdominal: Denies: Abdominal Pain Musculoskeletal Complaints: Reports: Joint Pain Misc: All systems neg except as marked - Vitals Vitals: Last Vital Signs Temp 36.5 C 12/30/18 10:00 Pulse 118 H 12/30/18 10:00 Resp 20 12/30/18 10:00 BP 119/77 12/30/18 10:00 Pulse Ox 94 12/30/18 10:00 - Abnormal Lab Findings Abnormal Lab Findings: Abnormal Lab Results 12/30/18 12/30/18 Range/Units 05:45 05:45 RBC 3.72 L (4.2-5.4) M/mm3 Hgb 11.1 L (12.5-16.0) gm/dL Hct 33.8 L (37.0-47.0) % Immature Gran % (Auto) 1.10 H (0.001-0.429) % Immature Gran # (Auto) 0.08 H (0.000-0.0310) K/mm3 Monocytes % 12.8 H (0.0-9) % Potassium 2.7 L (3.4-4.6) mmol/L Carbon Dioxide 23.0 L (24-32.6) mmol/L Anion Gap 15.7 H (6.8-13.8) mmol/L Random Glucose 162 H (70-110) mg/dL Albumin 2.1 L (3.4-5.0) gm/dl - Exam Constitutional: Present: Alert, Cooperative, Well developed, Well nourished, No distress, Elderly ENT Exam: Present: hearing grossly normal Neck: Present: supple, normal inspection, trachea midline. Absent: lymphad enopathy (R), lymphadenopathy (L) Respiratory: Present: lungs clear, normal breath sounds, no respiratory distress, No wheezing. Absent: crackles, rhonchi Cardiovascular/Chest: Present: normal peripheral pulses, regular rate, rhythm, no edema, no murmur, tachycardia Abdomen: Present: Normal bowel sounds, nontender, nondistended Extremity: Present: no pedal edema Skin Exam: Present: warm/dry Neurologic: Present: normal mood/affect Appearance: Present: appropriate appearance Eye contact: Present: cooperative Thoughts: Present: normal thought pattern, normal mood /affect Cauti Physician Documentation - Urinary Catheter Management Urethral (Garcia) Urethral Indwelling: No Date of Insertion: 12/29/18 Time of Insertion: 02:30 Date of Removal: 12/29/18 Time of Removal: 17:37 Assessment/Plan - Problems/Diagnosis (1) Fracture of femoral neck, right, closed Problem: Acute Qualifiers: Encounter type: initial encounter Qualified Code(s): S72.001A - Fracture of unspecified part of neck of right femur, initial encounter for closed fracture Narrative: Continue pain management. She does complain of 6 5-6 out of 10 pain in the right shoulder and right hip. Ortho is adjusting the pain medications. (2) Hypertension Problem: Chronic Qualifiers: Hypertension type: essential hypertension Qualified Code(s): I10 - Essential (primary) hypertension Narrative: Stable no changes. (3) Diabetes Problem: Chronic (4) Right shoulder pain Problem: Acute Qualifiers: Chronicity: acute Qualified Code(s): M25.511 - Pain in right shoulder Narrative: Continue with pain management. (5) SVT (supraventricular tachycardia) Problem: Acute Narrative: Continue repleting electrolytes to keep magnesium above 2 and potassium above 4. If arrhythmia continues will consider cardiology referral in the morning. Start low-dose metoprolol succinate 12.5 mg. (6) Hypokalemia Problem: Acute Narrative: Replete PRN.
[2018-12-30] MEDS ORDERED: MAGNESIUM SULFATE 8 MEQ in DEXTROSE 5 % IN WATER 50 ML IV ONE ×2 (14:00)
[2018-12-30] MEDS: NORMAL SALINE 1,000 ML IV PRN (14:02)
[2018-12-30] MEDS: SENNOSIDES/DOCUSATE SODIUM 1 TAB TABLET PO SCH (20:50)
[2018-12-31] MEDS: NORMAL SALINE 1,000 ML IV PRN (03:21)
[2018-12-31] MEDS: ACETAMINOPHEN 500 MG TABLET PO PRN ×2 (03:29→10:31)
[2018-12-31 05:38] LABS: Hematocrit 31.5 % (37.0-47.0); Hemoglobin 10.4 gm/dL (12.5-16.0); Mean Cell Volume 92.4 fl (78-100); Mean Corpuscular Hemoglobin 30.5 pg (27-31); Mean Platelet Volume 10.2 fl (8-12.5); Neutrophil % 68.1 % (42-75.0); Platelet Count 276 K/mm3 (150-450); Red Blood Count 3.41 M/mm3 (4.2-5.4); Red Cell Distribution Width 13.4 % (11.5-14.0); White Blood Count 7.4 K/mm3 (4.0-10.5)
[2018-12-31 05:52] LABS: Anion Gap 14.8 mmol/L (6.8-13.8); BUN/Creatinine Ratio 17.2 (9.0-21.6); Bilirubin, Total 0.4 mg/dL (0.0-1.1); Ca. Corrected For Albumin 10.2 mg/dL (8.4-10.2); Calcium * 8.9 mg/dL (7.9-10.9); Carbon Dioxide 23.9 mmol/L (24-32.6); Magnesium 1.7 mg/dL (1.2-2.8); Potassium 3.7 mmol/L (3.4-4.6); Total Protein 6.3 gm/dL (6.2-8.2)
[2018-12-31] MEDS: LEVOTHYROXINE SODIUM 112 MCG TABLET PO SCH (07:02)
[2018-12-31] MEDS: oxyCODONE HCL/ACETAMINOPHEN 1 TAB TABLET PO PRN (07:41)
[2018-12-31] MEDS: CHOLECALCIFEROL 1,000 UNIT CAPSULE PO SCH (08:48)
[2018-12-31] MEDS: glipiZIDE 10 MG TABLET PO SCH (08:48)
[2018-12-31] MEDS: ENOXAPARIN SODIUM 40 MG/0.4 ML SYRG SC SCH (08:48)
[2018-12-31] MEDS: metFORMIN HCL 500 MG TABLET PO SCH (08:51)
[2018-12-31] MEDS ORDERED: METOPROLOL SUCCINATE 25 MG TABLET.SA PO SCH (09:00)
--- NOTE | 2018-12-31 09:20 | DS ---
(1) Fracture of femoral neck, right, closed Problem: Resolved Qualifiers: Encounter type: initial encounter Qualified Code(s): S72.001A - Fracture of unspecified part of neck of right femur, initial encounter for closed fracture (2) Hypertension Problem: Chronic Qualifiers: Hypertension type: essential hypertension Qualified Code(s): I10 - Essential (primary) hypertension (3) Diabetes Problem: Chronic (4) Right shoulder pain Diagnosis(s): Use sling as needed Problem: Acute Qualifiers: Chronicity: acute Qualified Code(s): M25.511 - Pain in right shoulder (5) SVT (supraventricular tachycardia) Diagnosis(s): Resolved with repletion of potassium. Started metoprolol succinate 12.5mg with good response Problem: Resolved (6) Hypokalemia Problem: Resolved Description of Stay: 83-year-old female with a past medical history of hypertension, hyperlipidemia, osteoporosis, type 2 diabetes mellitus, cerebrovascular disease, osteoporosis presents status post fall. She was brought to the emergency department and found to have a right femoral neck fracture on x-ray. She underwent a operative percutaneous screw fixation on December 26, [address] Ley. She will need skilled rehab on discharge because she lives alone. Procedures Performed: see notes below List Procedures: operative percutaneous screw fixation on December 26, 2018 Results and Findings: Lab Pending Results 12/25/18 07:40: WBC 2.8 L, RBC 4.54, Hgb 13.8, Hct 42.0, MCV 92.5, MCH 30.4, MCHC 32.9, RDW 12.9, Plt Count 170, MPV 10.0, Immature Gran % (Auto) 1.10 H, Immature Gran # (Auto) 0.03, Neutrophils % 53.7, Lymphocytes % 25.3, Monocytes % 19.1 H, Eosinophils % 0.4, Basophils % 0.4, Nucleated RBC % 0.0, Neutrophils # 1.5, Lymphocytes # 0.70 L, Monocytes # 0.5, Eosinophils # 0.0, Absolute Basophils 0.0 12/25/18 07:40: Sodium 134, Plasma Sodium 136, Potassium 4.1, Chloride 100, Carbon Dioxide 25.0, Anion Gap 13.1, BUN 14, Creatinine 0.69, Est GFR (Non-Af Amer) 87 D, BUN/Creatinine Ratio 20.3, Random Glucose 238 H, Calcium 9.4, Calcium Adj for Albumin 9.4, Total Bilirubin 0.3, AST 23, ALT 20, Alkaline Phosphatase 105, Creatine Kinase 44, Total Protein 7.8, Albumin 3.6 12/25/18 09:17: Urine Color Yellow, Urine Appearance Clear, Urine pH 6.0, Ur Specific [place] 1.025, Urine Protein 15 H, Urine Glucose (UA) Negative, Urine Ketones 50, Urine Blood 10 H, Urine Nitrate Negative, Urine Bilirubin Negative, Prot Sulfosalicylic Acd Negative, Urine Urobilinogen Normal, Ur Leukocyte Esterase Negative, Urine RBC 0-5, Urine WBC None seen, Ur Epithelial Cells None seen, Urine Bacteria None seen, Urine Culture Comments No culture indicated 12/26/18 05:17: WBC 4.3 D, RBC 4.64, Hgb 13.9, Hct 42.7, MCV 92.0, MCH 30.0, MCHC 32.6, RDW 13.0, Plt Count 167, MPV 10.2, Immature Gran % (Auto) 0.70 H, Immature Gran # (Auto) 0.03, Neutrophils % 51.5, Lymphocytes % 30.0, Monocytes % 17.8 H, Eosinophils % 0.0, Basophils % 0.0, Nucleated RBC % 0.0, Neutrophils # 2.2, Lymphocytes # 1.30 L, Monocytes # 0.8, Eosinophils # 0.0, Absolute Basophils 0.0 12/26/18 05:17: Sodium 136, Plasma Sodium 137, Potassium 3.3 L, Chloride 101, Carbon Dioxide 24.1, Anion Gap 14.2 H, BUN 12, Creatinine 0.63, Est GFR (Non-Af Amer) 96, BUN/Creatinine Ratio 19.0, Random Glucose 175 H, Calcium 8.8, Calcium Adj for Albumin 9.1, Total Bilirubin 0.4, AST 22, ALT 18 L, Alkaline Phosphatase 93, Total Protein 7.4, Albumin 3.2 L 12/27/18 05:10: WBC 4.7, RBC 4.14 L, Hgb 12.5, Hct 37.5, MCV 90.6, MCH 30.2, MCHC 33.3, RDW 12.8, Plt Count 150, MPV 10.3 12/27/18 05:10: Sodium 131 L, Plasma Sodium 133, Potassium 3.4, Chloride 98, Carbon Dioxide 22.0 L, Anion Gap 14.4 H, BUN 8, Creatinine 0.62, Est GFR (Non-Af Amer) 98, BUN/Creatinine Ratio 12.9, Random Glucose 210 H, Calcium 8.6 12/28/18 05:40: WBC 5.8 D, RBC 3.81 L, Hgb 11.4 L, Hct 34.7 L, MCV 91.1, MCH 29.9, MCHC 32.9, RDW 13.0, Plt Count 145 L, MPV 10.2, Immature Gran % (Auto) 0.50 H, Immature Gran # (Auto) 0.03, Neutrophils % 64.4, Lymphocytes % 21.9, Monocytes % 13.0 H, Eosinophils % 0.0, Basophils % 0.2, Nucleated RBC % 0.0, Neutrophils # 3.7, Lymphocytes # 1.26 L, Monocytes # 0.8, Eosinophils # 0.0, Absolute Basophils 0.0 12/28/18 05:40: Sodium 137, Plasma Sodium 138, Potassium 3.1 L, Chloride 102, Carbon Dioxide 25.0, Anion Gap 13.1, BUN 9, Creatinine 0.59, Est GFR (Non-Af Amer) 104, BUN/Creatinine Ratio 15.3, Random Glucose 179 H, Calcium 9.0, Calcium Adj for Albumin 10.0, Total Bilirubin 0.3, AST 19, ALT 14 L, Alkaline Phosphatase 73, Total Protein 6.5, Albumin 2.3 L 12/29/18 00:50: Troponin I Less than 0.017 12/29/18 00:55: D-Dimer 2.29 H 12/29/18 07:31: Sodium 141, Plasma Sodium 142, Potassium 2.9 L, Chloride 105, Carbon Dioxide 25.2, Anion Gap 13.7, BUN 6, Creatinine 0.54, Est GFR (Non-Af Amer) 115, BUN/Creatinine Ratio 11.1, Random Glucose 167 H, Calcium 9.2, Calcium Adj for Albumin 10.4 H, Total Bilirubin 0.4, AST 21, ALT 17 L, Alkaline Phosphatase 80, Troponin I 0.039, Total Protein 6.4, Albumin 2.1 L 12/30/18 05:45: Sodium 138, Plasma Sodium 139, Potassium 2.7 L, Chloride 102, Carbon Dioxide 23.0 L, Anion Gap 15.7 H, BUN 6, Creatinine 0.52, Est GFR (Non-Af Amer) 120, BUN/Creatinine Ratio 11.5, Random Glucose 162 H, Calcium 9.0, Calcium Adj for Albumin 10.2, Total Bilirubin 0.6, AST 35, ALT 23, Alkaline Phosphatase 99, Total Protein 6.6, Albumin 2.1 L 12/30/18 05:45: WBC 7.4 D, RBC 3.72 L, Hgb 11.1 L, Hct 33.8 L, MCV 90.9, MCH 29.8, MCHC 32.8, RDW 13.2, Plt Count 238, MPV 10.5, Immature Gran % (Auto) 1.10 H, Immature Gran # (Auto) 0.08 H, Neutrophils % 65.0, Lymphocytes % 20.9, Monocytes % 12.8 H, Eosinophils % 0.1, Basophils % 0.1, Nucleated RBC % 0.0, Neutrophils # 4.8, Lymphocytes # 1.54, Monocytes # 0.9, Eosinophils # 0.0, Absolute Basophils 0.0 12/30/18 05:45: Magnesium 1.4 12/30/18 14:29: Potassium 4.2 D 12/31/18 05:32: WBC 7.4, RBC 3.41 L, Hgb 10.4 L, Hct 31.5 L, MCV 92.4, MCH 30.5, MCHC 33.0, RDW 13.4, Plt Count 276, MPV 10.2, Immature Gran % (Auto) 1.50 H, Immature Gran # (Auto) 0.11 H, Neutrophils % 68.1, Lymphocytes % 16.2 L, Monocytes % 14.1 H, Eosinophils % 0.0, Basophils % 0.1, Nucleated RBC % 0.0, Neutrophils # 5.0, Lymphocytes # 1.19 L, Monocytes # 1.0, Eosinophils # 0.0, Absolute Basophils 0.0 12/31/18 05:32: Sodium 138, Plasma Sodium 140, Potassium 3.7, Chloride 103, Carbon Dioxide 23.9 L, Anion Gap 14.8 H, BUN 10 D, Creatinine 0.58, Est GFR (Non-Af Amer) 106, BUN/Creatinine Ratio 17.2, Random Glucose 210 H, Calcium 8.9, Calcium Adj for Albumin 10.2, Magnesium 1.7, Total Bilirubin 0.4, AST 73 H, ALT 71 H, Alkaline Phosphatase 121, Total Protein 6.3, Albumin 2.0 L Discharge Location: [facility] Disposition: SNF Condition: Stable Level of Care: SNF Discharge Activity: Activity as tolerated Discharge Diet: Consistent carbs [facility] Therapy: Physicial Therapy, Occupation Therapy Problem Oriented Discharge Instructions to Patient/Family: Hip Rehabilitation After Surgery Additional Patient Instructions (free text): To [facility] for PT and OT to evaluate and treat. Postoperative bandages to be changed every 3 days or as needed with dry gauze and tape, bandages need to be kept clean and dry -VTE prophylaxis: Lovenox until 2 weeks postop followed by 325 mg aspirin daily for 6 weeks, MIRIAM hose -Right shoulder pain, sling for comfort, will monitor follow-up -Follow-up at 2 weeks postoperatively in orthopedic outpatient clinic with Dr. Ley 01/13 at 12:45pm. WBAT to RLE. Post op dressing changed 12/31 by ortho. Prescriptions (Any new or edited meds): Aspirin 325 mg PO DAILY #30 tab oxyCODONE HCL/ACETAMINOPHEN [Percocet 5 MG/325 MG] 1 - 2 tab PO Q4H PRN #60 tab PRN Reason: Severe Pain (Pain Scale 7-10) Complete Home Medications List: Complete Home Medication List: Aspirin 81 mg PO DAILY 12/25/18 Cholecalciferol (Vitamin D3) [Vitamin D3] 1,000 unit PO DAILY 12/25/18 Levothyroxine Sodium [Tirosint] 112 mcg PO DAILY 12/25/18 glipiZIDE [Glipizide] 10 mg PO BID 12/25/18 metFORMIN HCL [Metformin HCl] 500 mg PO BID 12/25/18 Aspirin 325 mg PO DAILY #30 tab 12/31/18 Enoxaparin Sodium [Lovenox] 40 mg SC Q24H #14 disp.syrin 12/31/18 Magnesium Hydroxide [Milk Of Magnesia] 30 ml PO DAILY PRN udc 12/31/18 Metoprolol Succinate [Toprol Xl] 12.5 mg PO DAILY tablet.sa 12/31/18 Sennosides/Docusate Sodium [Senokot-S] 2 tab PO HS tab 12/31/18 oxyCODONE HCL/ACETAMINOPHEN [Percocet 5 MG/325 MG] 1 - 2 tab PO Q4H PRN #60 tab 12/31/18
[2018-12-31 11:35] VITALS: BP 136/57
--- NOTE | 2019-01-01 07:50 | PN ---
Yanira Note - Interim Date: 12/31/18 Time: 07:30 Narrative: 01/01/19 07:49 Patient resting comfortably in bed. She had no acute complaints. She noted she had been up with physical therapy. Dressings were changed with new gauze and tape. Surgical wound revealed no significant erythema or drainage at this time. Exam revealed 5/5 plantar flexion dorsiflexion of the foot, sensation intact light touch, distal capillary refill brisk, mild diffuse tenderness about her right hip. Discussed continued previous recommendations for discharge. Patient will follow-up at 2 weeks postop in orthopedic outpatient clinic.
== END 2018-12-31 11:25 | DRG 481 ==
LOC: ER 07:26 → MS 09:23 → SCU 12-29 02:11 → MS 12-29 12:22
PROVIDERS: ADMIT Internal Medicine; ATTEND Internal Medicine
DX: M81.0 Age-related osteoporosis without current pathological fracture; I97.191 Other postprocedural cardiac functional disturbances following other surgery; M25.511 Pain in right shoulder; I47.1 Supraventricular tachycardia; I95.9 Hypotension, unspecified; E78.5 Hyperlipidemia, unspecified; S72.001A Fracture of unspecified part of neck of right femur, initial encounter for closed fracture; E87.6 Hypokalemia; I10 Essential (primary) hypertension; W01.0XXA Fall on same level from slipping, tripping and stumbling without subsequent striking against object, initial encounter; E11.9 Type 2 diabetes mellitus without complications; R40.4 Transient alteration of awareness
CPT/HCPCS: 36415; 70450; 71010; 71045; 71100; 71275; 72125; 73030; 73080; 73200; 73502; 76000; 80048; 80053; 81001; 82550; 83735; 84132; 84484; 85025; 85027; 85379; 87086; 93005; 97110; 97116; 97161; 97166; 97530; 99285